=== PATIENT | female | born 2005 | race Hispanic/Latino ===

== ENCOUNTER 2024-02-26 15:33 | Emergency (ER) | payer OTHER ==
[2024-02-26] MEDS ORDERED: CYCLOBENZAPRINE 10 MG TAB ONE (16:21)
[2024-02-26 16:44] LABS: Specific Gravity 1.026 (1.005-1.030)
[2024-02-26] MEDS ORDERED: KETOROLAC 30 MG/ML INJ ONE (16:44)
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
[2024-02-26 19:16] VITALS: BP 121/81; TEMP 98.5; O2SAT 98
== END 2024-02-26 18:53 | disposition home or self-care (01) ==
LOC: ER 15:33
DX: M54.2 Cervicalgia (principal); M54.9 Dorsalgia, unspecified; V49.50XA Passenger injured in collision with unspecified motor vehicles in traffic accident, initial encounter
CPT/HCPCS: 72125; 72128; 81025; 96372; 99284